=== PATIENT | female | born 2000 | race Caucasian/White ===

== ENCOUNTER 2022-05-14 21:10 | Emergency (ER) | payer SELFPAY ==
[~2022-05-14] VITALS: Ht 160 cm; Wt 68.2 kg
[2022-05-14 21:51] VITALS: BP 107/65
== END 2022-05-15 02:29 | disposition left against medical advice (07) ==
LOC: EMS 22:14
DX: T23.231A Burn of second degree of multiple right fingers (nail), not including thumb, initial encounter (principal); X15.0XXA Contact with hot stove (kitchen), initial encounter; Y93.89 Activity, other specified; Y92.89 Other specified places as the place of occurrence of the external cause; Y99.8 Other external cause status; Z53.21 Procedure and treatment not carried out due to patient leaving prior to being seen by health care provider

== ENCOUNTER 2022-09-20 15:58 | Emergency (ER) | payer BC, MEDICAID ==
[~2022-09-20] VITALS: Ht 160 cm; Wt 81.8 kg
[2022-09-20 17:54] LABS: BASOPHILS % (AUTO) 0.4 % (0.0-2.0); EOSINOPHILS % (AUTO) 2.5 % (1.0-6.0); HEMATOCRIT 40.2 % (36-46); HEMOGLOBIN 13.1 g/dL (12.0-16.0); LYMPHOCYTES # (AUTO) 2.1 K/uL (1.0-4.8); LYMPHOCYTES % (AUTO) 21.9 % (22.0-44.0); MEAN CORPUSCULAR HEMOGLOBIN 27.3 pg (26.0-34.0); MEAN CORPUSCULAR HGB CONC 32.5 G/dL (31.0-37.0); MEAN CORPUSCULAR VOLUME 84 fL (80-100); MONOCYTES # (AUTO) 0.6 K/uL (0.1-1.0); MONOCYTES % (AUTO) 6.1 % (2.0-9.0); NEUTROPHILS # (AUTO) 6.6 K/uL (1.8-7.7); NEUTROPHILS % (AUTO) 69.1 % (40.0-70.0); PLATELET COUNT (AUTO) 253 K/uL (150-450); RED BLOOD CELL COUNT(AUTO) 4.79 MIL/uL (4.00-5.20); RED CELL DISTRIBUTION WIDTH 13.8 % (11.5-14.5)
[2022-09-20 21:02] VITALS: BP 122/70
== END 2022-09-20 21:04 | disposition home or self-care (01) ==
LOC: EDBD 16:01 → EMS 16:01
DX: O46.91 Antepartum hemorrhage, unspecified, first trimester (principal); N93.9 Abnormal uterine and vaginal bleeding, unspecified; Z3A.10 10 weeks gestation of pregnancy
CPT/HCPCS: 76801; 76817; 84702; 85025; 86901; 99284